=== PATIENT | male | born 1940 | race Caucasian/White ===

== ENCOUNTER → 2017-04-30 | Outpatient (CLI) | payer MEDICARE, OTHER ==
[2015-05-08 16:05] VITALS: BP 108/67
[~2017-04-30] MED LIST: ASPI-630 PO; DUTA1CPM PO; LISI-338 PO
--- NOTE | 2017-04-30 09:34 | KCIC ---
EXAMINATION: Magnetic resonance imaging (MRI) of the lumbar spine without contrast HISTORY: Low back pain. TECHNIQUE: Multiplanar multi-weighted MRI of the lumbar spine was performed without intravenous contrast using the standard lumbar spine protocol. Contrast information: None administered. COMPARISON: None available. FINDINGS: There is levoconvex scoliosis of the lumbar spine with apex levocurvature at L2-L3. There is grade 1 anterolisthesis of L5 on S1. Modic type II endplate degenerative changes are identified at L2-L3 with associated disc height loss. Minimal edema is noted involving the superior endplate of L3 without significant height loss. There are no compression fractures. The conus medullaris terminates at the level of L1-L2. The distal spinal cord signal intensity is normal. There is disc desiccation at all levels of lumbar spine. Vacuum disc phenomena is identified at L1-L2, L2-L3, L3-L4 and L5-S1. Limited views of the abdomen and pelvis show no soft tissue abnormality. The aorta is normal. L1-L2: There is minimal disc bulge. There is moderate facet arthropathy. There is moderate right neuroforaminal stenosis. There is mild spinal canal stenosis. L2-L3: There is a diffuse disc bulge. There is moderate facet arthropathy. There is moderate right and mild left neuroforaminal stenosis. There is mild spinal canal stenosis. L3-L4: There is a diffuse disc bulge. There is moderate facet arthropathy. There is moderate neuroforaminal stenosis. There is mild to moderate spinal canal stenosis. L4-L5: There is minimal disc bulge. There is moderate right and severe left facet arthropathy. There is mild right and moderate left neuroforaminal stenosis. There is no spinal canal stenosis. L5-S1: There is uncovering of the disc secondary to anterolisthesis. There is severe facet arthropathy. There is mild to moderate neuroforaminal stenosis. There is no spinal canal stenosis. Bilateral L5 pars defects are identified. IMPRESSION: 1. There is grade 1 anterolisthesis of L5 on S1 secondary to chronic bilateral L5 pars defects. 2. Moderate multilevel degenerative changes, as detailed above. 3. Levoconvex scoliosis of the lumbar spine with apex levocurvature at L2-L3. Electronically signed by: Giselle Coleman MD (04/30/2017 9:31 AM) [id number]
== END | disposition home or self-care (01) ==
LOC: KCIC MRI 08:25
PROVIDERS: ATTEND Family Medicine
DX: M41.86 Other forms of scoliosis, lumbar region (principal); M48.07 Spinal stenosis, lumbosacral region
CPT/HCPCS: 72148

== ENCOUNTER → 2018-04-12 | Outpatient (CLI) | payer MEDICARE, OTHER ==
[2015-05-08 16:05] VITALS: BP 108/67
--- NOTE | 2018-04-12 11:54 | KCIC ---
EXAM: Brain MRI without contrast. HISTORY: Cognitive impairment. TECHNIQUE: Multiplanar, multisequence magnetic resonance imaging of the brain was performed without contrast. COMPARISON: None. FINDINGS: There is no restricted diffusion to suggest acute or subacute infarction. There is no susceptibility effect to suggest hemorrhage. There is no mass effect or midline shift. There is no hydrocephalus. There is cerebral volume loss with compensatory enlargement of the ventricles. There are multiple scattered focal areas of signal change throughout the cerebral white matter and eduardo, likely due to chronic small vessel disease. There is evidence of lens surgery. There is moderate right and mild left maxillary sinus and moderate bilateral ethmoid sinus and mild right frontal and sphenoid sinus mucosal thickening. There are small right maxillary sinus mucous retention cysts. The mastoid air cells are clear. There are normal flow voids within the cerebral vessels. There is increased extra-axial space within the left middle cranial fossa likely due to an arachnoid cyst, measuring 4.5 cm. IMPRESSION: 1. No acute intracranial finding. 2. Multiple scattered focal areas of signal change within the cerebral white matter and eduardo, likely due to chronic small vessel disease. 3. Cerebral atrophy. 4. Left middle cranial fossa arachnoid cyst. Electronically signed by: Kely Freitas MD (04/12/2018 11:51 AM) [id number]
== END | disposition home or self-care (01) ==
LOC: KCIC MRI 10:42
PROVIDERS: ATTEND Family Medicine
DX: G31.9 Degenerative disease of nervous system, unspecified (principal); G93.0 Cerebral cysts; J34.89 Other specified disorders of nose and nasal sinuses; I10 Essential (primary) hypertension; E78.00 Pure hypercholesterolemia, unspecified; J43.9 Emphysema, unspecified; K21.9 Gastro-esophageal reflux disease without esophagitis; Z72.0 Tobacco use
CPT/HCPCS: 70551

== ENCOUNTER → 2019-03-17 | Outpatient (CLI) | payer MEDICARE, OTHER ==
[2015-05-08 16:05] VITALS: BP 108/67
[~2019-03-17] MED LIST changes: +IOHEXOL 240 MG/ML 50ML VIAL. PO ONE; +IOHEXOL 300 MG/ML 100ML VIAL. IV ONE
--- NOTE | 2019-03-17 13:21 | RAD ---
PQRS Compliance statement: One or more of the following individualized dose reduction techniques were utilized for this examination: 1. Automated exposure control. 2. Adjustment of the mA and/or kV according to patient size. 3. Use of iterative reconstruction technique. Indication:Abdominal pain. TECHNIQUE: CT abdomen and pelvis with IV contrast with multiplanar reformats. COMPARISON: Previous exam from 2014 FINDINGS: Heart is normal in size. No pericardial or pleural effusion. Left lower lobe nodule measuring 1.1 cm, previously 1.1 cm and is benign given interval stability. Stable 4 mm nodular opacity in the left lower lobe (series 2 image 10). Stable subcapsular focus of high attenuation is seen in segment 4A/4B junction measuring 1.4 cm, previously 1.2 cm, nonspecific but likely perfusion anomaly. Otherwise, liver, spleen, pancreas, adrenals and kidneys are within normal limits. No free pelvic fluid or ascites. No enlarged retroperitoneal or pelvic adenopathy. Aortobiiliac grafts noted. Gallstones noted. No pericholecystic fluid. No bowel obstruction. Normal appendix. Prostate is nonenlarged. Urinary bladder demonstrates no radiopaque stones. Small fat-containing left inguinal hernia. No suspicious bony lesion. Bilateral L5 pars defect with grade 1 anterolisthesis of L5 over S1. IMPRESSION: 1. Bilateral left lower lobe nodules dating back to 2013 and benign given interval stability. 2. Cholelithiasis without imaging evidence of acute cholecystitis. Electronically signed by: Benoit Taylor DO (03/17/2019 1:19 PM) [facility]
== END | disposition home or self-care (01) ==
LOC: CT 10:05
PROVIDERS: ATTEND Family Medicine
DX: K40.90 Unilateral inguinal hernia, without obstruction or gangrene, not specified as recurrent (principal); K80.20 Calculus of gallbladder without cholecystitis without obstruction; R91.8 Other nonspecific abnormal finding of lung field; E46 Unspecified protein-calorie malnutrition; J44.9 Chronic obstructive pulmonary disease, unspecified; I10 Essential (primary) hypertension; Z87.891 Personal history of nicotine dependence
CPT/HCPCS: 74177; Q9966; Q9967